=== PATIENT | male | born 1975 | race Two or more races ===

== ENCOUNTER 2016-12-05 18:17 | Emergency (ER) | payer OTHER ==
[2016-12-05] MEDS ORDERED: LIDOCAINE 1% W/EPI MPF 10 ML SOL ONE (18:35)
[2016-12-05 18:45] VITALS: RESP 16; TEMP 97.7; O2SAT 99
[2016-12-05 18:49] VITALS: BP 151/83; PULSE 109
[2016-12-05] MEDS ORDERED: LIDOCAINE 1% W/EPI MPF 10 ML SOL SC ONE (19:10)
== END 2016-12-05 19:27 | disposition home or self-care (01) | DRG 605 ==
LOC: ED 18:17
DX: S61.412A Laceration without foreign body of left hand, initial encounter (principal); W26.8XXA Contact with other sharp object(s), not elsewhere classified, initial encounter; Y99.0 Civilian activity done for income or pay
CPT/HCPCS: 12002; 99283; G0168; A6402